=== PATIENT | male | born 1970 | race Caucasian/White ===

== ENCOUNTER 2020-01-18 14:04 | Emergency (ER) | payer OTHER ==
[2020-01-18] MEDS ORDERED: TETRACAINE HCL 0.5% OPH SOLN 4 ML OD ONE (15:17)
--- NOTE | 2020-01-18 15:20 | ER Document Report ---
ED Medical Screen (RME) - General Chief Complaint: Eye Injury Stated Complaint: FALL/RIGHT EYE INJURY Time Seen by Provider: 01/18/20 15:16 Primary Care Provider: NIALL PATTON [Primary Care Provider] - Follow up as needed Mode of Arrival: Wheelchair Information source: Patient Notes: HPI; 49-year-old male presents to the emergency room with complaints of right eye pain. Patient states he went out to walk his dog around 430 this morning when he tripped over some flowerpots that had stick sticking up out of them injuring his right eye with 1 of the sticks. Complaining of pain and dizziness. No nausea. No use of contacts or glasses. PE: Alert and oriented x3. Moderate distress noted. Painful to open up her right eye. PERRLA, obvious foreign body noted to right sclera. Tender on palpation over the globe. Sclera injected. Increasing pain with movement of the right eye. Lungs: Clear to auscultation without rales, rhonchi, wheezes. Heart: Regular rate and rhythm without murmurs, rubs, gallops. I have greeted and performed a rapid initial assessment of this patient. A comprehensive ED assessment and evaluation of the patient, analysis of test res ults and completion of the medical decision making process will be conducted by additional ED providers. I have specifically instructed the patient or family members with the patient to immediately return to any nursing staff should anything change in the patient's condition or with their chief complaint. TRAVEL OUTSIDE OF THE [place] IN LAST 30 DAYS: No Physical Exam - Vital signs Vitals: Temp Pulse Resp BP Pulse Ox 98.0 F 78 16 151/98 H 100 01/18/20 14:10 01/18/20 14:10 01/18/20 14:10 01/18/20 14:10 01/18/20 14:10 Course - Vital Signs Vital signs: Temp Pulse Resp BP Pulse Ox 98.0 F 78 16 151/98 H 100 01/18/20 14:10 01/18/20 14:10 01/18/20 14:10 01/18/20 14:10 01/18/20 14:10 Doctor's Discharge - Discharge Referrals: NIALL PATTON [Primary Care Provider] - Follow up as needed
--- NOTE | 2020-01-18 17:16 | ER Document Report ---
ED Eye Complaint - General Chief Complaint: Eye Injury Stated Complaint: FALL/RIGHT EYE INJURY Time Seen by Provider: 01/18/20 15:16 Primary Care Provider: NIALL PATTON [NO LOCAL MD] - Follow up as needed Mode of Arrival: Wheelchair Notes: HPI: Patient is a 49-year-old male who presents today after he states he was walking in his house around 5 AM when he tripped falling forward. He states he hit his right eye on a decorative flow object that his had in the room composed of twigs. He states pain with opening his eye and looking around the room. ROS: See HPI All other review of systems reviewed and otherwise negative Reviewed vital signs and nursing note as charted by RN. PHYSICAL EXAM: CONSTITUTIONAL: Alert and oriented and responds appropriately to questions. Well-appearing; well-nourished HEAD: Normocephalic; atraumatic EYES: PERRL; conjunctiva is injected. Sclerae injected. No periorbital swelling or ecchymosis. Full extraocular range of motion without entrapment ENT: Normal nose; no rhinorrhea; moist mucous membranes; pharynx without lesions noted NECK: Supple without meningismus; non-tender CARD: Regular rate and rhythm; no murmurs; symmetric distal pulses RESP: Normal chest excursion without splinting or tachypnea; breath sounds clear and equal bilaterally BACK: The back appears normal and is non-tender to palpation EXT: Normal ROM in all joints; non-tender to palpation SKIN: No acute lesions noted NEURO: CN 2-12 intact; 5/5 bilateral upper and lower extremity strength with sensation intact to light touch PSYCH: The patient's mood and manner are appropriate. Grooming and personal hygiene are appropriate. TRAVEL OUTSIDE OF THE [place] IN LAST 30 DAYS: No - Related Data Allergies/Adverse Reactions: No Known Allergies Allergy (Unverified 01/18/20 16:48) Past Medical History - General Information source: Patient - Social History Smoking Status: Current Every Day Smoker Chew tobacco use (# tins/day): No Frequency of alcohol use: Occasional Drug Abuse: None Family History: Reviewed & Not Pertinent Physical Exam - Vital signs Vitals: Temp Pulse Resp BP Pulse Ox 98.0 F 78 16 151/98 H 100 01/18/20 14:10 01/18/20 14:10 01/18/20 14:10 01/18/20 14:10 01/18/20 14:10 - HEENT Visual acuity- Right eye: 0 Visual acuity- Left eye: 20/40 Visual acuity- Both eyes: 20/30 Corrective lenses worn: No Course - Re-evaluation Re-evalutation: Given the history and physical examination with no loss of globe structure, full extraocular range of motion without entrapment, quick and reactive pupils, we will obtain visual acuity test, update the patient's tetanus, perform a Rodriguez lamp and slit lamp examination to evaluate for the possibility of foreign bodies or corneal abrasions. 01/18/20 18:16 CT scan as recorded. Patient states he had had a previous facial injury. Patient states the only trauma that he sustained this morning which is being poked into the right eye. I spoke directly with the radiologist he does not believe this is an acute orbital fracture. She does not see any globe rupture. Patient is able to count fingers with his right eye 7 feet out without any complications. I did perform slit-lamp, pressure measurement, and Rodriguez lamp. Patient has a corneal abrasion just inferior medial to the pupil. No obvious foreign bodies. No obvious cell and flare. I did attempt to call the [facility] but there is currently not on-call on the weekends here. They do have an office here on Monday that opens at 8 AM. Given the patient's trauma with a decorative stick, I will start the patient on [place]ance eyedrops with strict return precautions and a course of pain medications. Patient does not wear contacts or glasses. Patient will be discharged home with strict return precautions and follow-up with the [facility] on Monday. - Vital Signs Vital signs: Temp Pulse Resp BP Pulse Ox 98.0 F 78 16 151/98 H 100 01/18/20 14:10 01/18/20 14:10 01/18/20 14:10 01/18/20 14:10 01/18/20 14:10 Discharge - Discharge Clinical Impression: Accidental fall Qualifiers: Encounter type: initial encounter Qualified Code(s): W19.XXXA - Unspecified fall, initial encounter Injury of conjunctiva and corneal abrasion of right eye w/o FB Qualifiers: Encounter type: initial encounter Qualified Code(s): S05.01XA - Injury of conjunctiva and corneal abrasion without foreign body, right eye, initial encounter Condition: Good Disposition: HOME, SELF-CARE Additional Instructions: Come back immediately for any increased pain, swelling around the eye, excessive drainage from the eye, worsening vision, worsening pain, or any other acute problems. Please make sure that she follow-up with the [facility] on Monday by calling and telling him that you were seen in the emergency department over the weekend and you were told to follow-up in the office Monday. Prescriptions: Hydrocodone/Acetaminophen [Lane 5-325 mg Tablet] 1 tab PO Q8 #10 tablet Moxifloxacin HCl [Vigamox 0.5% Oph Soln 3 Ml] 1 drop RT_EYE TID #1 bottle Referrals: NIALL PATTON [NO LOCAL MD] - Follow up as needed JONY CABA MD [ACTIVE STAFF] - Follow up as needed
--- NOTE | 2020-01-18 17:32 | RADIOLOGY REPORT (SQ) ---
EXAM DESCRIPTION: CT ORBIT/SELLA WITHOUT IMAGES COMPLETED DATE/TIME: 01/18/2020 3:52 pm REASON FOR STUDY: eye injury COMPARISON: None. TECHNIQUE: Noncontrasted images through the orbits windowed for bone and soft tissue. Additional co lorena and sagittal reconstructed images reviewed. All images stored on PACS. All CT scanners at this facility use dose modulation, iterative reconstruction, and/or weight based d osing when appropriate to reduce radiation dose to as low as reasonably achievable (ALARA). [facility]: Dose Right [facility]: CareDose [facility]: Dose Right [facility]: Teradose 4D [facility]: [employer] RADIATION DOSE: CT Rad equipment meets quality standard of care and radiation dose reduction techniq ues were employed. CTDIvol: 30.4 mGy. DLP: 484 mGy-cm. mGy. LIMITATIONS: None. FINDINGS: FACIAL BONES: No fracture or bone lesion. ORBITS: There is bowing of the medial wall of the right orbit with no associated inflammatory change or fluid, possibly representing a chronic medial orbital wall fracture. Acute fracture is thought le ss likely. The left orbit is intact. Mild preseptal edema at the right globe. No radiopaque foreign body. Extraocular muscles are symmetric. No intraconal mass or fluid. PARANASAL SINUSES: Minimal mucosal thickening bilateral maxillary sinuses. No air-fluid levels. Sph enoid, ethmoid, and frontal sinuses are clear. No nasal polyps. Maxillary sinus outlets are patent. SOFT TISSUES: No soft tissue abnormality. No radiopaque foreign body. INFERIOR BRAIN: Limited view. No acute findings. OTHER: No other significant finding. IMPRESSION: 1. Mild preseptal edema at the right globe. No radiopaque foreign body. No evidence of globe ruptur e or intraconal mass or fluid. 2. Chronic medial orbital wall fracture. No evidence of acute facial bone fracture. TECHNICAL DOCUMENTATION: JOB ID: [id number] Quality ID # [id number]: Final reports with documentation of one or more dose reduction techniques (e.g., Au tomated exposure control, adjustment of the mA and/or kV according to patient size, use of iterative reconstruction technique) 2010 [employer]- All Rights Reserved Reading location - IP/workstation name: [email or web address]
[2020-01-18] MEDS ORDERED: BESIFLOXACIN HCL 0.6% OPH SUSP 5 ML BOTTLE OD ONE (18:15)
[2020-01-18] MEDS ORDERED: HYDROCODONE/ACETAMINOPHEN 5-325 MG (6 TAB/ER DISP) PO PRN (18:33)
[2020-01-18] MEDS ORDERED: BESIFLOXACIN HCL 0.6% OPH SUSP 5 ML BOTTLE ONE (19:10)
[2020-01-18] MEDS ORDERED: DIPH/PERTUSS(ACELL)/TETANUS VAC/PF 0.5 ML SYR (>=10YO) IM ONE (19:16)
[2020-01-18 19:34] VITALS: BP 147/88
== END 2020-01-18 17:20 | disposition home or self-care (01) ==
LOC: ER 14:04
DX: S05.01XA Injury of conjunctiva and corneal abrasion without foreign body, right eye, initial encounter (principal); W01.198A Fall on same level from slipping, tripping and stumbling with subsequent striking against other object, initial encounter; Y92.009 Unspecified place in unspecified non-institutional (private) residence as the place of occurrence of the external cause; F17.200 Nicotine dependence, unspecified, uncomplicated
CPT/HCPCS: 99284; 90471; 70480; J3490